=== PATIENT | male | born 1980 | race Caucasian/White ===

== ENCOUNTER 2021-07-15 14:49 | Emergency (ER) | payer OTHER, SELFPAY ==
[2021-07-15 14:59] VITALS: BP 147/94; PULSE 114; RESP 18; TEMP 36.6; O2SAT 98
--- NOTE | 2021-07-15 15:25 | PC.NURSE ---
1459- Pt has been taking Pseudoephedrine and had 2 energy drinks. HR 114, [employer] aware.
--- NOTE | 2021-07-15 15:43 | ED.URI ---
HPI - URI/Sore Throat General Chief Complaint: Upper Respiratory Infection Stated Complaint: sorethroat,lt ear pain Time Seen by Provider: 07/15/21 15:10 Source: patient Mode of arrival: ambulatory Limitations: no limitations History of Present Illness HPI Narrative: 41-year-old male presents with complaint for 1 month. Reports dry cough, worse at night. Afebrile. Not taking any [id number] medications to treat his cough. Last night he began having nasal congestion, left ear pain, sore throat. Today he is requesting a COVID test. Denies chest pain and shortness of breath. No nausea vomiting diarrhea. All systems reviewed and negative except as noted above. Related Data Home Medications Medication Instructions Recorded Confirmed alprazolam 1 mg tablet 1 mg PO .5 times a day tablet 10/08/19 07/15/21 cyclobenzaprine 10 mg PO TID 07/15/21 07/15/21 metoprolol succinate 75 mg PO DAILY 07/15/21 Allergies Allergy/AdvReac Type Severity Reaction Status Date / Time No Known Allergies Allergy Verified 01/18/21 15:16 Review of Systems Review of Systems: CONSTITUTIONAL: Denies fever, chills, or sweats. EYES: Denies visual changes, redness, or discharge. ENT: Reports rhinorrhea, congestion, sore throat and left ear pain. CARDIOVASCULAR: Denies chest pain, palpitations, or edema. RESPIRATORY: Reports cough or dyspnea. GASTROINTESTINAL: Denies abdominal pain, nausea, vomiting, or diarrhea. GENITOURINARY: Denies dysuria or hematuria. SKIN: Denies rash or itching. MUSCULOSKELETAL: Denies back pain, joint pain, or myalgia. NEUROLOGIC: Denies headache, numbness, or weakness. PSYCHIATRIC: Denies anxiety or depression. All other systems reviewed are negative, except as documented in HPI. 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 IBS (irritable bowel syndrome) Lumbar disc disease Surgical History Surgical History History of back surgery History of enlarged adenoids Hx of appendectomy Hx of tonsillectomy Spinal fusion failure Family History Family History Father Alcoholism Hypertension Depression Sibling Depression Grandparent Lung cancer Brain cancer Alcoholism Hypertension Depression Heart disease Social History Social History Smoking status: Never smoker Tobacco type: cigarettes Second hand tobacco smoke exposure: No Smoking end date: 05/04/07 Alcohol intake: current Drinks per week: 1 Alcohol use details: every 6 months Substance use: current Substance use type: marijuana Gender identity (if verbalized by the patient): Male Spiritual care concerns: No Agree to blood products: Yes Comments At time of signature, agree with nursing past medical, surgical, social and family history. There is no relevant family history pertinent to the presenting complaint. Exam Narrative: GENERAL: This is a well-nourished, well-developed patient, in no apparent distress. HEAD: normocephalic, atraumatic. EYES: PERRL. Sclera clear/white. Vision is grossly intact. EARS: External ears normal, auditory canals clear and without drainage, TMs normal without perforation. Hearing grossly intact. NOSE: External nose normal with clear nasal drainage. THROAT: Mucous membranes moist, no erythema to posterior pharynx, clear postnasal drainage. NECK: Neck supple, non-tender without lymphadenopathy, masses or thyromegaly. CARDIOVASCULAR: Regular rate and rhythm without murmurs, gallops, or rubs. RESPIRATORY: Mild expiratory wheeze to upper lobes on expiration, otherwise clear on auscultation. No respiratory distress. SKIN: warm, Dry, intact with no suspicious lesions or rash, good texture and turgor. NEURO: awake, al
== END 2021-07-15 15:44 | disposition home or self-care (01) ==
PROVIDERS: Emergency Provider Nurse Practitioner Family
DX: J20.9 Acute bronchitis, unspecified (principal); Z20.822 Contact with and (suspected) exposure to COVID-19; Z87.891 Personal history of nicotine dependence; F41.9 Anxiety disorder, unspecified
CPT/HCPCS: 87426; 99213; C9803; G0463

== ENCOUNTER 2022-07-25 18:43 | Emergency (ER) | payer OTHER, SELFPAY ==
--- NOTE | ~2022-07-25 | XR_ITS ---
EXAMINATION: XR chest 2V Exam Date/Time: 07/25/2022 18:55 CDT HISTORY: cough congestion Comparison: None. RESULT: Lines, tubes, and devices: None. Lungs and pleura: Clear. Cardiomediastinal silhouette: Normal. Other: No acute osseous or upper abdominal finding. IMPRESSION: No acute cardiopulmonary process. Reviewed, dictated and finalized at location K.
--- NOTE | 2022-07-25 18:46 | ED.URI ---
HPI - URI/Sore Throat General Chief Complaint: Upper Respiratory Infection Stated Complaint: Cough/Chest Congestion Time Seen by Provider: 07/25/22 18:46 Source: patient Mode of arrival: ambulatory Limitations: no limitations History of Present Illness HPI Narrative: Bill is a 42-year-old male patient presenting to the clinic today with complaints of productive cough, chest congestion, and shortness of breath x8 days. He reports he was prescribed doxycycline and he began this yesterday from his PCP. States that he has tried opwo-vhm-mryjnty cough medicines without relief. Denies any fever or chills. Does have some chest discomfort due to the cough as well as some body aches. MD elicited complaint: sore throat and nasal congestion Related Data Home Medications Medication Instructions Recorded Confirmed alprazolam 2 mg tablet 2 mg PO TID 07/25/22 07/25/22 doxycycline hyclate 100 mg capsule 100 mg PO DAILY 07/25/22 07/25/22 lisinopril 20 mg tablet 20 mg PO DAILY 07/25/22 07/25/22 Allergies Allergy/AdvReac Type Severity Reaction Status Date / Time No Known Allergies Allergy Verified 07/25/22 18:49 Review of Systems Review of Systems: Pertinent positives per HPI. Patient denies any fever, chills, rash, headache, visual changes, dizziness, chest pain, palpitations, nausea, vomiting, diarrhea, constipation, abdominal pain, or any urinary issues. 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 IBS (irritable bowel syndrome) Lumbar disc disease Surgical History Surgical History History of back surgery History of enlarged adenoids Hx of appendectomy Hx of tonsillectomy Spinal fusion failure Family History Family History Father Alcoholism Hypertension Depression Sibling Depression Grandparent Lung cancer Brain cancer Alcoholism Hypertension Depression Heart disease Social History Social History Smoking status: Never smoker Tobacco type: cigarettes Second hand tobacco smoke exposure: No Smoking end date: 05/04/07 Alcohol intake: current Drinks per week: 1 Alcohol use details: every 6 months Substance use: current Substance use type: marijuana Living arrangements: with family Gender identity (if verbalized by the patient): Male Spiritual care concerns: No Agree to blood products: Yes Comments At the time of my signature, I reviewed and agree with the nursing past medical, surgical, social, and family history. There is no relevant family history pertinent to the patient complaint. Exam Narrative: General: Well-developed, well nourished, in no apparent distress Head: Normocephalic, atraumatic Eyes: Pupils equally round and reactive to light bilaterally, EOM intact, sclera and conjunctive clear, no discharge, lids normal Ears: TMs intact and congested,, ear canals clear, no drainage, grossly hearing normal. Nose: Nares patent, clear nasal discharge, no inflammation, no sinus tenderness. Mouth: Oropharynx red without lesions or masses, good dentition, MMM. Tonsils her to be absent, postnasal drip Neck: Supple, trachea midline, no enlargement of anterior or posterior cervical nodes, no thyroid masses or goiter palpable. Cardio: Regular rate and rhythm, s1 and s2 normal, no murmur appreciated. Resp: Diminished in the bases otherwise clear, no rhonchi, rales, wheezing or rubs Course Course Emergency Course: Portions of this record may have been created with voice recognition software. Level of Care: Express Care Visit Vital Signs Vital signs: Vital signs reviewed MDM - URI/Sore Throat MDM Narrative Medical decision making narrative: At the time of visit abigail
[2022-07-25 18:56] VITALS: BP 129/84; PULSE 108; RESP 18; TEMP 36.6; O2SAT 98
== END 2022-07-25 19:18 | disposition home or self-care (01) ==
PROVIDERS: Emergency Provider Nurse Practitioner Family; PCP Physician Assistant
DX: J20.9 Acute bronchitis, unspecified (principal); F41.9 Anxiety disorder, unspecified
CPT/HCPCS: 71046; 99213; G0463

== ENCOUNTER 2023-02-14 10:28 | Outpatient (CLI) | payer OTHER, SELFPAY ==
--- NOTE | 2023-02-12 14:55 | PC.NURSE ---
Pre Radiology instructions Report to the outpatient carolyn arteaga on date _[id number]_ at time _0700_ for procedure Time: _0900_ YOU MAY BE MONITORED AT HOSPITAL FOR UP TO 4 HOURS AFTER YOUR PROCEDURE. A visitor will be allowed to accompany the patient into the hospital. You and your visitor will be asked to self-screen and do not enter if you have any COVID symptoms. A mask is OPTIONAL within the hospital. Patients are to have no food or drink 6 hours prior to procedure time Driving will be restricted after the procedure, you must have a person to drive you home. Labs will be drawn in preop area and once reviewed, you will be taken to radiology area for procedure. When the procedure is completed, you will be taken to outpatient where you will be monitored for several hours. You may have one visitor in this area. Other than holding anti-coagulants, patient may take other medication(s) as scheduled. Prior to your appointment date patients are instructed to hold anti-coagulants after discussing with ordering provider to stop. If unable to discontinue anti-coagulants please notify radiologist. ? No aspirin or warfarin (Coumadin) for 7 days prior to the procedure. ? No clopidogrel (Plavix), ticagrelor (Brilinta), prasugrel (Effient) or dabigatran (Pradaxa) for 5 days prior to the procedure. ? No rivaroxaban (Xarelto), apixaban (Eliquis), dipyridamole (Aggrenox or Persantine) or cilostazol (Pletal) for 2 days prior to the procedure. Medications to discontinue per physician: _Aspirin Date to take last dose: _Stopped already [id number] Please leave all valuables, including medications, at home the day of procedure. The hospital will not accept responsibility for valuables. Wear comfortable, loose fitting clothing.? Follow any additional instructions given to you from ordering provider. Telephone instructions given to Melonie__and asked if any additional questions and then verbalized understanding. Patient advised to call scheduling provider office or registration scheduling [phone] if any additional questions.
[2023-02-12 15:01] VITALS: BMI 28.5
[2023-02-14 07:54] VITALS: BP 137/87; PULSE 96; RESP 16; TEMP 37.3; O2SAT 98
[2023-02-14 07:57] LABS: Mean Platelet Volume 11.4 fl (7.4-10.4); Platelet Count Result 218 k/mm3 (150-375)
[2023-02-14 08:09] LABS: INR 0.9; Prothrombin Time 12.7 Seconds (11.1-14.7)
--- NOTE | 2023-02-14 09:03 | SUR.PREOP ---
4377- RADIOLOGY CAME TO GET PT IN PRE OP AREA. PT HAD QUESTIONS ABOUT PROCEDURE. QUESTIONS ANSWERED. PT STATED THAT HE HAS BEEN FEELING PRETTY GOOD SINCE GOING OT THERAPY. PT DECLINED TO HAVE PROCEDURE PERFORMED TODAY. PT DISCHARGED HOME.
== END 2023-02-14 10:29 | disposition home or self-care (01) ==
PROVIDERS: PCP Physician Assistant; Referring Provider Orthopaedic Surgery Orthopaedic Surgery of the Spine; Visit Provider Radiology Diagnostic Radiology
DX: M54.16 Radiculopathy, lumbar region (principal)
CPT/HCPCS: 36415; 85049; 85610